=== PATIENT | male | born 1965 | race Caucasian/White ===

== ENCOUNTER 2020-08-20 14:09 | Emergency (ER) | payer BC ==
[2020-08-20 15:15] VITALS: BP 144/71
== END 2020-08-20 15:15 | disposition home or self-care (01) | DRG 556 ==
LOC: ED 14:09
DX: M79.671 Pain in right foot (principal); W14.XXXA Fall from tree, initial encounter; Y93.H2 Activity, gardening and landscaping; Y92.007 Garden or yard of unspecified non-institutional (private) residence as the place of occurrence of the external cause